=== PATIENT | female | born 1935 | race Caucasian/White ===

== ENCOUNTER 2022-08-27 09:22 | Emergency (ER) | payer MEDICARE, BC ==
[~2022-08-27] VITALS: Ht 154.9 cm; Wt 49.3 kg
[2022-08-27 11:02] LABS: BASO % 0.5 % (0.0-1.0); EOS # 0.1 10^3/uL (0.0-0.5); EOS % 2.1 % (0.0-3.0); HEMATOCRIT 42.4 % (36.0-47.0); LYMPH # 1.3 10^3/uL (1.5-5.0); MEAN CORPUSCULAR HEMOGLOBIN 31.3 pg (27.0-33.0); MEAN CORPUSCULAR VOLUME 94.6 fl (80.0-96.0); MONO # 0.6 10^3/uL (0.0-0.8); MONO % 10.9 % (2.0-8.0); NEUTROPHILS # 3.6 10^3/uL (1.5-8.5); NEUTROPHILS % 63.3 % (36.0-66.0); PLATELET COUNT, AUTOMATED 207 10^3/uL (150-450); RED BLOOD COUNT 4.48 10^6/uL (4.00-5.40); WHITE BLOOD COUNT 5.6 10^3/uL (4.0-10.0)
[2022-08-27] MEDS ORDERED: ISOVUE-370 76% 100ML VIAL As Ordered ONE (11:09)
[2022-08-27 11:27] LABS: BLOOD UREA NITROGEN 19 MG/DL (9-23); CALCIUM LEVEL 9.8 MG/DL (8.3-10.6); CARBON DIOXIDE LEVEL 26 MMOL/L (20-31); CHLORIDE LEVEL 107 MMOL/L (98-107); CREATININE FOR GFR 0.65 MG/DL (0.55-1.30); GLOMERULAR FILTRATION RATE > 60.0 (>32); GLUCOSE, FASTING 80 MG/DL (74-106); POTASSIUM SERUM 4.5 MMOL/L (3.5-5.1); SODIUM LEVEL 141 MMOL/L (136-145)
[2022-08-27 12:48] LABS: CARCINOEMBRYONIC ANTIGEN < 2.0 NG/ML (<2.5)
[2022-08-27 13:03] LABS: CA19-9 TUMOR MARKER,CARBOHYDRA 76.1 U/ML (<35.0)
[2022-08-27 13:33] VITALS: TEMP 97.6; O2SAT 98
[2022-08-27 13:38] VITALS: BP 122/70
[2022-08-27 14:52] LABS: LDH LACTATE DEHYDROGENASE 323 U/L (120-246)
[2022-08-31 12:12] LABS: INHIBIN A ULTRASENSITIVE 0.7 pg/mL (.); INHIBIN B <7.0 pg/mL (0.0-16.9)
== END 2022-08-27 13:40 | disposition home or self-care (01) ==
LOC: M ED 09:22
DX: R93.89 Abnormal findings on diagnostic imaging of other specified body structures (principal); R91.1 Solitary pulmonary nodule; Z87.448 Personal history of other diseases of urinary system; Z80.3 Family history of malignant neoplasm of breast
CPT/HCPCS: 74177; 76856; 80047; 80048; 81001; 82105; 82378; 83520; 83615; 85025; 86301; 86304; 86305; 86336; 86850; 86900; 86901; 87088; 87186; 99284; Q9967